=== PATIENT | female | born 1985 | race Caucasian/White ===

== ENCOUNTER 2016-08-13 22:35 | Emergency (ER) | payer OTHER ==
[2016-08-13 22:40] VITALS: BP 106/61; PULSE 70; RESP 18; TEMP 98
[2016-08-13] MEDS ORDERED: ACETAMINOPHEN TAB 500 MG TAB PO STA (22:59)
--- NOTE | 2016-08-13 22:59 | ED ---
General Adult HPI - General Chief complaint: Overdose Stated complaint: Overdose Time Seen by Provider: 08/13/16 22:40 Source: patient, EMS, RN notes reviewed Mode of arrival: EMS Limitations: no limitations - History of Present Illness Initial comments: This is a 31-year-old female presents emergency Department complaining that she has been clean from heroin for 3 months and today she shot up $2 worth and apparently overdosed. According to EMS someone gave her Narcan possibly the police and it reversed her and she was awake alert and oriented. I asked her if she had tried to overdose herself she said no asked if she was suicidal she said no and in fact the patient states she felt back to her baseline except for a mild headache. Patient states she would like to go home as soon as possible. Patient denied any numbness weakness. Patient denied any recent fever chills or cough per patient denies chest pain difficulty breathing or palpitations. Patient denied abdominal pain patient denies nausea vomiting diarrhea. - Related Data Allergies Allergy/AdvReac Type Severity Reaction Status Date / Time No Known Allergies Allergy Verified 08/13/16 22:36 Review of Systems ROS Statement: Those systems with pertinent positive or pertinent negative responses have been documented in the HPI. ROS Other: All systems not noted in ROS Statement are negative. Past Medical History Additional Past Medical History / Comment(s): back pain History of Any Multi-Drug Resistant Organisms: None Reported Past Surgical History: No Surgical Hx Reported Past Psychological History: No Psychological Hx Reported Smoking Status: Current every day smoker Past Alcohol Use History: None Reported Past Drug Use History: Cocaine, Opiates General Exam - General Exam Comments Initial Comments: GENERAL: Patient is well-developed and well-nourished. Patient is nontoxic and well- hydrated and is in no acute distress. ENT: Neck is soft and supple. No significant lymphadenopathy is noted. Oropharynx is clear. Moist mucous membranes. Neck has full range of motion without eliciting any pain. EYES: The sclera were anicteric and conjunctiva were pink and moist. Extraocular movements were intact and pupils were equal round and reactive to light. Eyelids were unremarkable. PULMONARY: Unlabored respirations. Good breath sounds bilaterally. No audible rales rhonchi or wheezing was noted. CARDIOVASCULAR: There is a regular rate and rhythm without any murmurs gallops or rubs. ABDOMEN: Soft and nontender with normal bowel sounds. SKIN: Skin is clear with no lesions or rashes and otherwise unremarkable. NEUROLOGIC: Patient is alert and oriented x3. Cranial nerves II through XII are grossly intact. Motor and sensory are also intact. Normal speech, volume and content. Symmetrical smile. MUSCULOSKELETAL: Normal extremities with adequate strength and full range of motion. LYMPHATICS: No significant lymphadenopathy is noted PSYCHIATRIC: Normal psychiatric evaluation. Patient denied suicidal ideations or any suicide attempts patient stated she would be safe going home. Limitations: no limitations Course Vital Signs 08/13/16 22:37 Temperature 98.0 F Pulse Rate 70 Respiratory 18 Rate Blood Pressure 106/61 O2 Sat by Pulse 96 Oximetry Medical Decision Making - Medical Decision Making Patient does not want to stay in the emergency department any longer. Disposition Clinical Impression: Heroin overdose Disposition: HOME SELF-CARE Instructions: Narcotic Abuse (ED) Referrals: None,Stated [Primary Care Provider] - 1-2 days Time of Disposition: 22:58
== END 2016-08-13 23:23 | disposition home or self-care (01) ==
LOC: EC 22:35
DX: R51 Headache (principal); T40.1X1A Poisoning by heroin, accidental (unintentional), initial encounter; F17.200 Nicotine dependence, unspecified, uncomplicated
CPT/HCPCS: 99283